=== PATIENT | male | born 1975 | race Caucasian/White ===

== ENCOUNTER 2016-11-13 22:37 | Emergency (ER) | payer SELFPAY ==
[~2016-11-13] VITALS: Ht 185.4 cm; Wt 107.0 kg
[~2016-11-13 22:37] MED LIST: IOHEXOL-300 100 ML BOTTLE ONE; IOHEXOL-350 100 ML BOTTLE ONE; SODIUM CHLORIDE 0.9% 10ML VIAL ONE
[2016-11-13] MEDS: MORPHINE SULFATE 4 MG/ML CPJ (NOT FOR IM USE) IV STA (23:21)
[2016-11-13] MEDS: SODIUM CHLORIDE 0.9% 1,000 ML IV ONE (23:21)
[2016-11-13 23:23] LABS: BASOPHILS % 0.9 % (0.0-2.0); EOSINOPHILS % 2.4 % (0.0-5.0); HEMATOCRIT. 44.8 % (42.0-52.0); HEMOGLOBIN. 15.4 g/dL (14.0-18.0); LYMPHOCYTES % 19.3 % (20.0-50.0); MEAN CORPUSCULAR HEMOGLOBIN 30.4 pg (28.0-32.0); MEAN CORPUSCULAR VOLUME 88.4 fL (80.0-94.0); MEAN PLATELET VOLUME 8.9 fl (7.4-10.4); MONOCYTES % 10.9 % (2.0-8.0); NEUTROPHILS % 66.5 % (40.0-76.0); PLATELET 262 x1000/uL (130-400); RED BLOOD CELL COUNT 5.07 mill/uL (4.7-6.1); RED CELL DISTRIBUTION WIDTH 13.3 % (11.6-14.6)
[2016-11-13] MEDS: ONDANSETRON HCL 4MG/2ML VIAL IV STA (23:30)
[2016-11-13 23:36] LABS: PROTHROMBIN TIME 10.4 sec
[2016-11-13 23:42] LABS: CLARITY URINE CLEAR (CLEAR); COLOR URINE YELLOW (YELLOW); GLUCOSE URINE NEGATIVE (NEGATIVE); KETONES URINE TRACE (NEGATIVE); LEUKOCYTE ESTERASE URINE NEGATIVE (NEGATIVE); NITRITE URINE NEGATIVE (NEGATIVE); OCCULT BLOOD URINE 2+ (NEGATIVE); PROTEIN URINE NEGATIVE (NEGATIVE); SPECIFIC GRAVITY URINE 1.021 (1.005-1.030)
[2016-11-13 23:46] LABS: CARBON DIOXIDE 27 mEq/L (21-32); CHLORIDE 106 mEq/L (98-107)
[2016-11-14 01:28] VITALS: BP 113/65
[2016-11-14] MEDS: MORPHINE SULFATE 4 MG/ML CPJ (NOT FOR IM USE) IV ONE (01:28)
== END 2016-11-14 06:19 | disposition home or self-care (01) ==
LOC: ER 22:37 → CANBEDREQ 11-14 03:27 → ER 11-14 06:19
DX: R10.31 Right lower quadrant pain (principal); F17.200 Nicotine dependence, unspecified, uncomplicated
CPT/HCPCS: 36415; 71010; 74177; 80053; 81001; 83690; 85025; 85610; 85730; 86850; 86900; 93005; 96361; 96374; 96375; 96376; 99285; A4216; J2270; J2405; J7030; Q9967